=== PATIENT | male | born 1970 | race African-American/Black ===

== ENCOUNTER 2024-08-22 05:34 | Emergency (ER) | payer OTHER | END 2024-08-22 07:22 | disposition left against medical advice (07) | LOC: ER 05:43 | DX: N50.89 Other specified disorders of the male genital organs (principal); Z53.21 Procedure and treatment not carried out due to patient leaving prior to being seen by health care provider ==

== ENCOUNTER 2024-08-22 12:45 | Emergency (ER) | payer OTHER | END 2024-08-22 13:34 | disposition left against medical advice (07) | LOC: ER 12:46 | DX: H57.10 Ocular pain, unspecified eye (principal); Z53.21 Procedure and treatment not carried out due to patient leaving prior to being seen by health care provider ==